=== PATIENT | male | born 1955 | race Caucasian/White ===

== ENCOUNTER 2019-01-26 13:55 | Emergency (ER) | payer OTHER ==
[2019-01-26 14:09] VITALS: BP 145/91
--- NOTE | 2019-01-26 14:25 | ED Physician Documentation ---
History of Present Illness - Stated complaint Stated Complaint: SORES MULT. AREAS - Chief complaint Chief Complaint: Wound - Additonal information Additional information: This is a 63-year-old male who presents with multiple skin lesions. Patient works with drug addicted individuals, he states that he has not had any exposure to anyone with obvious lesions, but in the last week he began developing a red spot over his hand, and then another one over his right arm. He thought the first 1 was an ingrown hair, he picked that it, and there was a small amount of clear drainage, and since he picked at it it has become more inflamed. He also scratched at the lesion on his right arm, and this appears more inflamed as well. He is developing some redness over his nose which is concerned as another lesion as well. He denies any lesions in his mouth, eyes, or elsewhere on his body. He denies fever, he has no history of dermatologic problems. Review of Systems Constitutional: denies: Fever Musculoskeletal: reports: Other (Several open sores) Immunocompromised: denies: Immunocompromised PD PAST MEDICAL HISTORY - Past Medical History Musculoskeletal: Other (shoulder bursitis) - Present Medications Home Medications: Ambulatory Orders Medication Instructions Recorded Confirmed Cephalexin [Keflex] 500 mg PO Q6H #28 capsule 01/26/19 Sulfamethox/Trimeth 800/160 1 each PO BID #14 tablet 01/26/19 [Bactrim Ds 800/160] - Allergies Allergies/Adverse Reactions: Allergies Allergy/AdvReac Type Severity Reaction Status Date / Time No Known Drug Allergies Allergy Verified 01/26/19 14:08 - Living Situation Living Arrangement: reports: At home - Social History Does the pt have substance abuse?: No - Family History Family history: reports: Non contributory PD ED PE NORMAL - Vitals Vital signs reviewed: Yes - General General: Alert and oriented X 3, No acute distress - HEENT HEENT: Pharynx benign - Cardiac Cardiac: Other (Well-perfused extremities) - Respiratory Respiratory: No respiratory distress - Abdomen Abdomen: Normal bowel sounds, Soft, Non tender, Non distended - Derm Derm: Other (Over the left dorsal hand there is a 2 cm x 2 cm shallow ul ceration, with no active drainage. There is minimal surrounding erythema. There is a 1.5 cm x 1.5 cm excoriated shallow ulceration over his right forearm as well. Over the bridge of his nose there is a 2 cm x 1.5 cm area of erythema without pustules, open sore, or blisters. No fluctuance of any lesion) - Extremities Extremities: No deformity - Neuro Neuro: Alert and oriented X 3 - Psych Psych: Normal mood, Normal affect Results - Vitals Vitals: Vital Signs - 24 hr 01/26/19 14:06 Temperature 36.7 C Heart Rate 60 Respiratory 18 Rate Blood Pressure 145/91 H O2 Saturation 99 Oxygen O2 Source Room air PD MEDICAL DECISION MAKING - ED course Complexity details: considered differential (Skin infection, cellulitis, excoriation, superinfection, MRSA, syphilis, zoonotic infection) ED course: Patient presents with several lesions on his skin, these began as red areas which he has picked that and opened into shallow ulcerations. 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 There is no involvement of his mucous membranes, he has no history of previous lesions, and I have a low suspicion for autoimmune disease, zoonotic infection, or syphilis based on his exposure history. I discussed that we should try treatment with antibiotics - we will prescribe him Keflex and Bactrim, first dose was given here. He will follow-up with his primary care provider, and if he develops worsening or his lesions are not improving he can return to the emergency department. Patient agreed this plan was discharged home. Departure - Departure Disposition: 01 Home, Self Care Clinical Impression: Cellulitis Qualifiers: Site of cellulitis: unspecified site Qualified Code(s): L03.90 - Cellulitis, unspecified Condition: Good Instructions: ED Infec Skin Cellulitis Follow-Up: Your,PCP [Other] (Within one week for recheck) Prescriptions: Cephalexin [Keflex] 500 mg PO Q6H #28 capsule Sulfamethox/Trimeth 800/160 [Bactrim Ds 800/160] 1 each PO BID #14 tablet Comments: You were seen today for several open sores. These appear to be a skin infection, I am concerned this may be MRSA. Please keep these covered with simple bandages, take the entire course of antibiotic. You may use a thin layer of antibiotic ointment over top of them as well. Do not scratch or pick at the lesions. If you are developing new lesions, or other new or concerning symptoms return to the emergency department. Otherwise follow-up with your primary care provider for recheck within a week.
== END 2019-01-26 15:10 | disposition home or self-care (01) ==
LOC: ED 13:55
DX: L03.114 Cellulitis of left upper limb (principal); L03.113 Cellulitis of right upper limb; J34.0 Abscess, furuncle and carbuncle of nose; L98.499 Non-pressure chronic ulcer of skin of other sites with unspecified severity
CPT/HCPCS: 99282; 99284